=== PATIENT | male | born 1985 ===

== ENCOUNTER 2018-04-21 07:37 | Emergency (ER) | payer OTHER ==
[~2018-04-21] VITALS: Ht 180.3 cm; Wt 109.1 kg
[2018-04-21 07:39] VITALS: TEMP 98.1
[2018-04-21 08:22] VITALS: BP 142/89; PULSE 64
== END 2018-04-21 08:22 | disposition home or self-care (01) ==
LOC: COL.ER 07:37
DX: H61.23 Impacted cerumen, bilateral (principal)